=== PATIENT | female | born 1980 | race Hispanic/Latino ===

== ENCOUNTER 2017-04-14 04:39 | Emergency (ER) | payer MEDICAID, OTHER ==
[2017-04-14] MEDS ORDERED: ONDANSETRON HCL 4 MG/2 ML VIAL ONE (04:47)
[2017-04-14] MEDS ORDERED: SODIUM CHLORIDE 0.9% 1000ML 1,000 ML IV ONE (04:47)
[2017-04-14 04:59] LABS: BASOPHILS % (AUTO) 0.3 % (0.0-5.0); EOSINOPHILS % (AUTO) 3.1 % (0.0-8.0); HEMATOCRIT 30.9 % (36-48); LYMPHOCYTES % (AUTO) 25.8 % (21.0-51.0); MEAN CORPUSCULAR HEMOGLOBIN 17.8 pg (27.0-33.0); MEAN CORPUSCULAR HGB CONC 29.9 g/dL (32.0-36.0); MEAN CORPUSCULAR VOLUME 59.5 fL (79-99); MONOCYTES % (AUTO) 9.8 % (3.0-13.0); PLATELET COUNT (AUTO) 289 K/uL (130-400); RED BLOOD CELL COUNT(AUTO) 5.19 MIL/uL (4.00-5.50); RED CELL DISTRIBUTION WIDTH 19.5 % (11.0-15.5)
[2017-04-14] MEDS ORDERED: DICYCLOMINE HCL 20 MG TAB ONE (05:00)
[2017-04-14] MEDS ORDERED: FAMOTIDINE 20MG TAB 20 MG TAB ONE (05:01)
[2017-04-14 05:10] LABS: CREATININE 0.6 mg/dL (0.5-1.5); POTASSIUM 3.1 mmol/L (3.5-5.1)
[2017-04-14 05:22] LABS: ALBUMIN 3.5 g/dL (3.5-5.0); BILIRUBIN,DIRECT 0.1 mg/dL (0.0-0.3); BILIRUBIN,TOTAL 0.3 mg/dL (0.2-1.0); TOTAL PROTEIN, SERUM 6.8 g/dL (6.0-8.3)
[2017-04-14] MEDS ORDERED: KETOROLAC TROMETHAMINE 30MG/ML ONE (05:39)
== END 2017-04-14 06:44 | disposition home or self-care (01) ==
LOC: EDH 04:39
DX: K52.9 Noninfective gastroenteritis and colitis, unspecified (principal); D64.9 Anemia, unspecified; E87.6 Hypokalemia
CPT/HCPCS: 36415; 80048; 80076; 81025; 83690; 85025; 87324; 96374; 96375; 99284; J1885; J2405; J7030